=== PATIENT | male | born 1965 | race Caucasian/White ===

== ENCOUNTER 2019-04-04 23:23 | Emergency (ER) | payer OTHER ==
[2019-04-05] MEDS ORDERED: NS 0.9% 1000 ML** 1,000 ML IV ONE (03:57)
[2019-04-05] MEDS ORDERED: Ondansetron INJ* 2 MG/ML VIAL IV ONE (03:57)
[2019-04-05] MEDS ORDERED: fentaNYL* 50 MCG/ML 2 ML VIAL (100 MCG VIAL) IV ONE (03:57)
--- NOTE | 2019-04-05 04:02 | ED ---
Adult Trauma - HPI Summary HPI Summary: he patient is a 53 y/o male presenting to [facility] accompanied by sister with a chief complaint of traumatic fall an hour prior to arrival. He reports that he was outside and slipped on ice, causing him to land on his back. He is now suffering from pain in the right lower scapular region rated 9/10 in severity. Movement aggravates the pain. He did not hit his head when he fell, and he denies any LOC. He denies any vision changes, nausea, tingling or numbness in the legs, weakness in the legs, saddle paresthesias, foot drop, or bowel or bladder incontinence. PMHx: DM, HTN, depression. FHx: cardiac disease, DM. Nonsmoker, weekly EtOH, no substance use. Medications reviewed. Allergies noted. - History of Current Complaint Chief Complaint: EDFall Stated Complaint: FALL PER PT Time Seen by Provider: 04/05/19 03:49 Hx Obtained From: Patient Mechanism of Injury: Fall Loss of Consciousness: no loss of consciousness Onset/Duration: Started Minutes Ago, Traumatic, Still Present Onset of Pain: Immediate Onset Severity: Severe Current Severity: Severe Pain Intensity: 9 Pain Scale Used: 0-10 Numeric Location: Back Character: Aching, Sharp Aggravating Factor(s): Movement Alleviating Factor(s): Nothing Associated Signs & Symptoms: Negative: Other: - vision changes, nausea, tingling or numbness in the legs, weakness in the legs, saddle paresthesias, foot drop, bowel or bladder incontinence - Allergy/Home Medications Allergies/Adverse Reactions: Allergies Allergy/AdvReac Type Severity Reaction Status Date / Time aspirin Allergy Anaphylatic Verified 04/04/19 23:29 Shock ibuprofen Allergy Anaphylatic Verified 04/04/19 23:29 Shock shellfish derived Allergy Anaphylatic Verified 04/04/19 23:29 Shock PMH/Surg Hx/FS Hx/Imm Hx Endocrine/Hematology History: Reports: Hx Diabetes Cardiovascular History: Reports: Hx Hypertension Sensory History: Reports: Hx Contacts or Glasses Opthamlomology History: Reports: Hx Contacts or Glasses Psychiatric History: Reports: Hx Depression - Surgical History Surgical History: None Surgery Procedure, Year, and Place: none - Immunization History Immunizations Up to Date: Yes Infectious Disease History: No Infectious Disease History: Denies: Traveled Outside the [place] in Last 30 Days - Family History Known Family History: Positive: Cardiac Disease, Diabetes - Social History Alcohol Use: Weekly Alcohol Amount: 1-2 beers Hx Substance Use: No Substance Use Type: Reports: None Hx Tobacco Use: No Smoking Status (MU): Never Smoked Tobacco - Additional Comments History Additional Comments: diabetes, hypertension, depression Review of Systems - ROS Summary Review of Systems Summary: Home Medications Medication Instructions Recorded Confirmed Type oxyCODONE/Acetamin 5/325 MG* 1 tab PO Q4H PRN #15 tab MDD 6 04/05/19 Rx [Percocet 5/325 TAB*] [place], Metformin Negative: Other - visual changes Negative: Other - bowel incontience Negative: incontinence Positive: Other - back pain, right lower scapular; Negative: foot drop Neurological: Other - Negative: head injury, LOC Negative: Weakness, Paresthesia, Numbness All Other Systems Reviewed And Are Negative: Yes Physical Exam - Summary Physical Exam Summary: General: Well-developed, Well-nourished male. Appears to be in moderate discomfort. HEENT: Normocephalic, Atraumatic. (-) Raccoons Eyes, (-) Battles Sign, (-) hemotympanum Eyes: Conjuctiva normal, PERRL. Ears: TMs within normal limits. Nares: (-) discharge, (-) erythema. Oropharynx: Clear, mucous membranes moist, (-) exudates. Neck: Soft, FROM, (-) lymphadenopathy, (-) thyromegaly, (-) JVD. Cardiovascular: Normal sinus rhythm, (-) murmur. Lungs: Clear to auscultation bilaterally (-) wheezes, (-) rales, (-) rhonchi. Abdomen: Soft, non-tender, non-distended, (-) organomegaly, normal bowel sounds. Neuro: Alert and oriented x3, no focal deficits, Cooperative. Normal strength and sensation of the lower extremities Musculoskeletal: Describes pain in the mid base of the right shoulder blade, Point tenderness in the area, No obvious ecchymosis or deformity, Good capillary refill, (-) spinal tenderness, (-) deformity. Skin: Warm, dry, (-) rash. Psychiatric: Mood normal, affect normal. Triage Information Reviewed: Yes Vital Signs On Initial Exam: Initial Vitals Temp Pulse Resp BP Pulse Ox 98.3 F 112 16 178/116 98 04/04/19 23:27 04/04/19 23:27 04/04/19 23:27 04/04/19 23:27 04/04/19 23:27 Vital Signs Reviewed: Yes Procedures - Sedation Patient Received Moderate/Deep Sedation with Procedure: No Diagnostics - Vital Signs Vital Signs Temp Pulse Resp BP Pulse Ox 04/04/19 23:27 98.3 F 112 16 178/116 98 - Laboratory Result Diagrams: 04/05/19 04:15 04/05/19 03:57 Lab Statement: Any lab studies that have been ordered have been reviewed, and results considered in the medical decision making process. - CT Abd/Pel CT CT Interpretation Completed By: Radiologist Summary of CT Findings: Impression: Chest - Nondisplaced fracture of the right anterior lateral 5th to 7th ribs. No associated pleural thickening or effusion. No evidence of a pulmonary contusion or pneumatocele. There is however an area of decreased pulmonary vascular markings in the area of the inferior major fissure on the right side. The significance of this finding is unclear. ED physician has reviewed this report. Abd/Pel - No acute findings. ED physician has reviewed this report. Re-Evaluation - Re-Evaluation First Eval Re-Evaluation Time: 06:45 Change: Improved Comment: I have discussed results with the patient back pain has improved. Discussed symptoms that warrant immediate return to ED. Adult Trauma Course/Dx - Course Course Of Treatment: Patient administered fluids, Zofran, and Fentanyl. - Diagnoses Provider Diagnoses: Ribs, multiple fractures Discharge ED - Sign-Out/Discharge Documenting (check all that apply): Patient Departure - Patient willl be discharged home. - Discharge Plan Condition: Stable Disposition: HOME Prescriptions: oxyCODONE/Acetamin 5/325 MG* [Percocet 5/325 TAB*] 1 tab PO Q4H PRN #15 tab MDD 6 PRN Reason: Pain - Severe Patient Education Materials: Rib Fracture (ED) Referrals: Juanito Lynn MD [Primary Care Provider] - 3 Days Additional Instructions: Please take medication as prescribed. Please follow up with your primary care physician within three days. Please return to ED for any new or worsening symptoms. - Attestation Statements Document Initiated by Scribe: Yes Documenting Scribe: Alisia Parada Provider For Whom Scribe is Documenting (Include Credential): Dr. Bhargavi Cifuentes MD Scribe Attestation: Alisia Osullivan, scribed for Dr. Bhargavi Cifuentes MD on 04/05/19 at 0715. Status of Scribe Document: Ready
[2019-04-05 04:25] LABS: INR 0.97 (0.82-1.09)
[2019-04-05 04:34] LABS: ABS Basophils 0.2 10^3/ul (0-0.2); ABS Eosinophils 0.2 10^3/ul (0-0.6); ABS Lymphocytes 2.2 10^3/ul (1.0-4.8); ABS Monocytes 0.7 10^3/ul (0-0.8); ABS Neutrophils 8.6 10^3/ul (1.5-7.7); Eosinophil % 1.3 %; Hematocrit 43 % (42-52); Hemoglobin 14.8 g/dL (14.0-18.0); Lymphocyte % 18.4 %; Mean Corpuscular HGB Conc 35 g/dL (31-36); Mean Corpuscular Hemoglobin 29 pg (27-31); Mean Corpuscular Volume 84 fL (80-94); Mean Platelet Volume 8.5 fL (7.4-10.4); Nucleated Red Blood Cells % 0.1; Platelet Count 274 10^3/uL (150-450); Red Cell Distribution Width 14 % (10-15); White Blood Count 11.7 10^3/uL (3.5-10.8)
[2019-04-05 04:36] LABS: Albumin 4.4 g/dL (3.2-5.2); Albumin/Globulin Ratio 1.3 (1-3); BUN/Creatinine Ratio 23.9 (8-20); Calcium 9.2 mg/dL (8.6-10.3); EGFR African American 81.8 (>60); EGFR Non-African American 67.6 (>60); Globulin 3.3 g/dL (2-4); Potassium 4.1 mmol/L (3.5-5.0); Total Bilirubin 0.6 mg/dL (0.2-1.0); Total Protein 7.7 g/dL (6.4-8.9)
[2019-04-05] MEDS ORDERED: Iohexol 300* (CONTRAST) 10 ML SDV IV ONE (05:08)
[2019-04-05] MEDS ORDERED: fentaNYL* 50 MCG/ML 2 ML VIAL (100 MCG VIAL) IV SLOW PU ONE (07:05)
[2019-04-05 08:10] VITALS: BP 153/79
== END 2019-04-05 08:10 | disposition home or self-care (01) ==
LOC: ED 23:23
DX: S22.41XA Multiple fractures of ribs, right side, initial encounter for closed fracture (principal); W00.0XXA Fall on same level due to ice and snow, initial encounter; Y92.9 Unspecified place or not applicable; E11.9 Type 2 diabetes mellitus without complications; I10 Essential (primary) hypertension; Z88.6 Allergy status to analgesic agent; Z91.013 Allergy to seafood
CPT/HCPCS: 36415; 71260; 74177; 80053; 83605; 85025; 85610; 96361; 96374; 96375; 96376; 99282; J2405; J3010; Q9967